=== PATIENT | female | born 1965 | race African-American/Black ===

== ENCOUNTER 2020-12-07 14:45 | Emergency (ER) | payer OTHER ==
[~2020-12-07] VITALS: Ht 162.6 cm; Wt 114.0 kg
[2020-12-07] MEDS ORDERED: IV NORMAL SALINE 1000ML BAG 1,000 ML IV ONE ×2 (15:45→18:45)
[2020-12-07] MEDS ORDERED: ONDANSETRON PF 4 MG/2 ML VIAL. IVP ONE (15:45)
[2020-12-07] MEDS ORDERED: ACETAMINOPHEN 325 MG TABLET. PO ONE (16:00)
[2020-12-07] MEDS ORDERED: methylPREDNISolone SOD SUCC PF 125 MG/2 ML VIAL. IV ONE (16:00)
[2020-12-07] MEDS ORDERED: ALBUTEROL SULFATE 2.5 MG/3 ML NEBU. NEB ONE (16:00)
--- NOTE | 2020-12-07 16:01 | PHYS DOC ---
General Adult EDM: Chief Complaint: MULTIPLE COMPLAINTS HPI: HPI: Patient is a 55 year old female who presents with 1 week of cough, shortness of breath, headache and fever. She states she started with vomiting and diarrhea today. Her second Covid shot was on November 29. She states that she has chest pain when she is coughing. The chest pain is in the mid chest and over to the left side. Patient denies dizziness, syncope, numbness or tingling, focal weakness, blood in her vomit or stool, urinary symptoms, back pain. Patient does have a history of asthma she states she is been using her inhaler at home but is not really helping. Review of Systems: Review of Systems: Constitutional: +fever or chills. [] Eyes: Denies change in visual acuity. [] HENT: Denies nasal congestion or sore throat. [] Respiratory: + cough or +shortness of breath. [] Cardiovascular: + chest pain or denies edema. [] GI: Denies abdominal pain, +nausea, +vomiting, denies bloody stools or +diarrhea. [] : Denies dysuria. [] Musculoskeletal: Denies back pain or joint pain. [] Integument: Denies rash. [] Neurologic: +headache, focal weakness or sensory changes. [] Endocrine: Denies polyuria or polydipsia. [] Lymphatic: Denies swollen glands. [] Psychiatric: Denies depression or anxiety. [] Heart Score: C/O Chest Pain: Yes HEART Score for Chest Pain: HEART Score for Chest Pain Response (Comments) Value History Slighlty/Non-Suspicious 0 ECG Normal 0 Age >45 - < 65 1 Risk Factors 1 or 2 Risk Factors 1 Troponin < Normal Limit 0 Total 2 Risk Factors: Risk Factors: DM, Current or recent (<one month) smoker, HTN, HLP, family history of CAD, obesity. Risk Scores: Score 0 - 3: 2.5% MACE over next 6 weeks - Discharge Home Score 4 - 6: 20.3% MACE over next 6 weeks - Admit for Clinical Observation Score 7 - 10: 72.7% MACE over next 6 weeks - Early Invasive Strategies Current Medications: Current Medications Medications (Trade) Dose Ordered Sig/Link Start Time Stop Time Status Last Admin Dose Admin Ondansetron HCl (Zofran) 4 mg 1X ONCE 12/07/20 15:45 12/07/20 15:46 UNV Sodium Chloride 1,000 ml @ 1,000 mls/hr 1X ONCE 12/07/20 15:45 12/07/20 16:44 UNV Physical Exam: PE: Constitutional: Well developed, well nourished, no acute distress, non-toxic appearance. [] HENT: Normocephalic, atraumatic, bilateral external ears normal, oropharynx moist, no oral exudates, nose normal. [] Eyes: PERRLA, EOMI, conjunctiva normal, no discharge. [] Neck: Normal range of motion, no tenderness, supple, no stridor. [] Cardiovascular:Heart rate tachycardia regular rhythm, no murmur [] Lungs & Thorax: Bilateral breath sounds clear to auscultation [] Abdomen: Bowel sounds normal, soft, no tenderness, no masses, no pulsatile masses. [] Skin: Warm, dry, no erythema, no rash. [] Back: No tenderness, no CVA tenderness. [] Extremities: No tenderness, no cyanosis, no clubbing, ROM intact, no edema. [] Neurologic: Alert and oriented X 3, normal motor function, normal sensory function, no focal deficits noted. [] Psychologic: Affect normal, judgement normal, mood normal. [] EKG: EK and read by Dr. Carlson as sinus tachycardia no STEMI [] Radiology/Procedures: Radiology/Procedures: [] Impression: [facility] [address] [facility] [place] [address] IMAGING REPORT Signed PATIENT: IFEANYI ROPER ACCOUNT: [id number] : 1965 LOCATION: ER AGE: 55 SEX: F EXAM STATUS: REG ER ORD. PHYSICIAN: YUMIKO BATES APRN REASON: chest pain, cough PROCEDURE: PORTABLE CHEST 1V XR CHEST 1V Clinical Indication: Reason: chest pain, cough / Spl. Instructions: / History: Comparison: None. Findings: The cardiomediastinal silhouette is normal. Lungs are clear. There is no pneumothorax. No pleural effusion is appreciated. No acute bone abnormality. IMPRESSION: No acute cardiopulmonary process. Electronically signed by: Az Chacon MD (12/07/2020 6:10 PM) [facility] DICTATED and SIGNED BY: AZ CHACON MD DATE: 12/07/20 [id number] [facility] [address] [place] [address] IMAGING REPORT Signed PATIENT: IFEANYI ROPER ACCOUNT: [id number] : 1965 LOCATION: ER AGE: 55 SEX: F EXAM STATUS: REG ER ORD. PHYSICIAN: YUMIKO BATES APRN REASON: diarrhea, vomiting, omni 300, 75 ml iv PROCEDURE: CT ABD PELV W/ IV CONTRST ONLY Exam: CT of abdomen and pelvis with contrast INDICATION: Diarrhea, vomiting TECHNIQUE: Sequential axial images through the abdomen and pelvis obtained following the administration of 75 mL of Isovue-370 IV contrast. Sagittal and coronal reformatted images were reconstructed from the axial data and reviewed. Exposure: One or more of the following in the visualized dose reduction techniques were utilized for this examination: 1. Automated exposure control 2. Adjustment of the MA and/or KV according to patient size 3. Use of iterative of reconstructive technique Comparisons: None FINDINGS: Heart size is normal. No pericardial effusion visualized lung bases are clear. No pleural effusion. Liver, spleen, pancreas and adrenals are unremarkable. Gallbladder is surgically absent. No perinephric inflammation. Mild left-sided hydronephrosis. There is a 3 mm calculus at the proximal left ureter. Nonobstructing left renal calculus is also noted. Bladder is partially distended and not well evaluated. Uterus is absent. No abnormal adnexal mass. Large and small bowel are unremarkable. Appendix is not identified. No free abdominal air or fluid. No obstruction. Abdominal aorta has a normal course and caliber. Abdominal vasculature is patent. No enlarged intra-abdominal lymph nodes are identified. No suspicious osseous lesions or acute fractures. IMPRESSION: 1. A 3 mm calculus the proximal left ureter with mild left-sided hydronephrosis. 2. Nonobstructing left renal calculus also noted. Electronically signed by: Ben Rosales MD (12/07/2020 8:23 PM) [facility] DICTATED and SIGNED BY: BEN ROSALES MD DATE: 12/07/20 [id number] 0 Course & Med Decision Making: Course & Med Decision Making Pertinent Labs and Imaging studies reviewed. (See chart for details) See HPI. Alert and oriented x4. Ambulatory with a steady gait. Speaks in full clear sentences. Lungs are clear to all station all lobes. Abdomen is soft and nontender. She rates her overall discomfort at a 8 out of 10. She states her stomach is cramping. Skin pink warm and dry. EKG shows sinus tachycardia no STEMI. 2100: Influenza negative. CT abdomen pelvis shows a left proximal ureter kidney stone and a nonobstructive left renal stone. Urinalysis does not show infection but does show some dehydration and contamination. Blood work is unremarkable. Patient will be sent home and follow-up with urology. Patient has been given 2 L of normal saline for hydration. Patient has been eating ice chips and she has not vomited and is keeping them down. Patient states she is feeling much better. I have retaken her temperature is 98.5. We will give the patient Rocephin in the ED. She is here from out of town and will be going back to her house December 28. I will still refer her to urology. I will Also send her home on an antibiotic. [] Sarah Disclaimer: Sarah Disclaimer: This electronic medical record was generated, in whole or in part, using a voice recognition dictation system. Departure Departure Impression: Primary Impression: Kidney stone on left side Additional Impressions: Fever Qualified Codes: R50.9 - Fever, unspecified Nausea & vomiting Qualified Codes: R11.2 - Nausea with vomiting, unspecified Disposition: 01 HOME / SELF CARE / HOMELESS Condition: STABLE Patient Instructions: Diet for Kidney Stones, Fever, Adult, Kidney Stones, Nausea and Vomiting Additional Instructions: Follow-up with the urologist of your choice. You can always go to urology at [phone]. Take medications as prescribed and with food. Take Tylenol or ibuprofen for fever or pain. If anything worsens return to the emergency room. Scripts Cephalexin (CEPHALEXIN) 500 Mg Capsule 1 CAP PO TID, #30 CAP Prov: YUMIKO BATES [employer] BU[employer]ING [employer]EL FORMER 12/07/20 Ibuprofen (IBUPROFEN) 600 Mg Tablet 600 MG PO PRN Q6HRS PRN for INFLAMMATION, #25 TAB Prov: YUMIKO BATES APRN 12/07/20 Hydrocodone Bit/Acetaminophen (HYDROCODONE-APAP 5-325 ) 1 Tab Tablet 1 TAB PO PRN Q6HRS PRN for PAIN, #10 TAB 0 Refills Prov: YUMIKO BATES APRN 12/07/20 Ondansetron (ONDANSETRON ODT) 4 Mg Tab.rapdis 1 TAB PO PRN Q6-8HRS, #20 TAB Prov: YUMIKO BATES APRN 12/07/20 Tamsulosin Hcl (FLOMAX) 0.4 Mg Cap.er.24h 1 CAP PO DAILY, #30 CAP Prov: YUMIKO BATES APRN 12/07/20 YUMIKO BATES APRN December 07, 2020 16:01
[2020-12-07 17:56] LABS: BASO % 0 % (0-3); EOS % 0 % (0-3); HEMATOCRIT 41.2 % (36.0-47.0); HEMOGLOBIN 14.4 g/dL (12.0-15.5); LYMPH # 0.5 x10^3/uL (1.0-4.8); LYMPH % 5 % (24-48); MEAN CORPUSCULAR HEMOGLOBIN 30 pg (25-35); MEAN CORPUSCULAR HGB CONC 35 g/dL (31-37); MEAN CORPUSCULAR VOLUME 85 fL (79-100); MONO # 0.4 x10^3/uL (0.0-1.1); MONO % 4 % (0-9); NEUT % 91 % (31-73); PLATELET COUNT 281 x10^3/uL (140-400); RED BLOOD COUNT 4.83 x10^6/uL (3.50-5.40); RED CELL DISTRIBUTION WIDTH 12.5 % (11.5-14.5)
[2020-12-07 17:57] LABS: BILIRUBIN,URINE SMALL (NEG); CLARITY,URINE CLEAR; COLOR,URINE AMBER; NITRITE,URINE NEGATIVE (NEG); PROTEIN,URINE NEGATIVE (NEG-TRACE)
[2020-12-07 18:11] LABS: CALCIUM 8.3 mg/dL (8.5-10.1); GFR 69.9; POTASSIUM 3.3 mmol/L (3.5-5.1)
--- NOTE | 2020-12-07 18:13 | RAD ---
XR CHEST 1V Clinical Indication: Reason: chest pain, cough / Spl. Instructions: / History: Comparison: None. Findings: The cardiomediastinal silhouette is normal. Lungs are clear. There is no pneumothorax. No pleural eff usion is appreciated. No acute bone abnormality. IMPRESSION: No acute cardiopulmonary process. Electronically signed by: Az Chacon MD (12/07/2020 6:10 PM) [facility]
[2020-12-07 18:14] LABS: BACTERIA,URINE MODERATE /HPF (0-FEW); RBC,URINE 20-40 /HPF (0-2)
[2020-12-07 18:15] LABS: WBC,URINE OCC /HPF (0-4)
[2020-12-07 18:16] LABS: INFLUENZA A PATIENT NEGATIVE (NEGATIVE); INFLUENZA B PATIENT NEGATIVE (NEGATIVE)
[2020-12-07 18:17] LABS: ALBUMIN 4.1 g/dL (3.4-5.0); ALBUMIN/GLOBULIN RATIO 1.1 (1.0-1.7); TOTAL BILIRUBIN 1.3 mg/dL (0.2-1.0); TOTAL PROTEIN 7.9 g/dL (6.4-8.2)
[2020-12-07] MEDS ORDERED: IOHEXOL 300 MG/ML 100ML VIAL. IV ONE (18:45)
[2020-12-07] MEDS ORDERED: CONTRAST GIVEN. MC PRN (19:00)
[2020-12-07 19:15] LABS: % LYMPHS 9 % (24-48); % MONOS 3 % (0-10); % SEGS 88 % (35-66)
[2020-12-07 19:16] LABS: PLT ESTIMATE ADEQUATE (ADEQUATE)
--- NOTE | 2020-12-07 19:31 | EKG ---
[facility] [address] [place] [address] Test Date: 2020-12-07 Test Time: 14:52:38 Pat Name: IFEANYI ROPER Department: Room: Gender: F Tester/Lift Trucker: : 1965 Requested By: YUMIKO BATES Order Number: [id number] Reading MD: Measurements Intervals [place] Rate: 108 P: 20 FL: 144 QRS: 66 QRSD: 82 T: 62 QT: 334 QTc: 451 Interpretive Statements SINUS TACHYCARDIA QRS(T) CONTOUR ABNORMALITY CONSIDER ANTEROLATERAL MYOCARDIAL DAMAGE POSSIBLY ABNORMAL ECG RI6.01 No previous ECG available for comparison
--- NOTE | 2020-12-07 20:25 | RAD ---
Exam: CT of abdomen and pelvis with contrast INDICATION: Diarrhea, vomiting TECHNIQUE: Sequential axial images through the abdomen and pelvis obtained following the administrati on of 75 mL of Isovue-370 IV contrast. Sagittal and coronal reformatted images were reconstructed fro m the axial data and reviewed. Exposure: One or more of the following in the visualized dose reduction techniques were utilized for this examination: 1. Automated exposure control 2. Adjustment of the MA and/or KV according to patient size 3. Use of iterative of reconstructive technique Comparisons: None FINDINGS: Heart size is normal. No pericardial effusion visualized lung bases are clear. No pleural effusion. Liver, spleen, pancreas and adrenals are unremarkable. Gallbladder is surgically absent. No perinephric inflammation. Mild left-sided hydronephrosis. There is a 3 mm calculus at the proximal left ureter. Nonobstructing left renal calculus is also noted. Bladder is partially distended and not well evaluated. Uterus is absent. No abnormal adnexal mass. Large and small bowel are unremarkable. Appendix is not identified. No free abdominal air or fluid. N o obstruction. Abdominal aorta has a normal course and caliber. Abdominal vasculature is patent. No enlarged intra-abdominal lymph nodes are identified. No suspicious osseous lesions or acute fractures. IMPRESSION: 1. A 3 mm calculus the proximal left ureter with mild left-sided hydronephrosis. 2. Nonobstructing left renal calculus also noted. Electronically signed by: Ben Jacobsen MD (12/07/2020 8:23 PM) [facility]
[2020-12-07] MEDS ORDERED: CEPH500C PO (21:08)
[2020-12-07] MEDS ORDERED: TAMS0.4C97 PO (21:08)
[2020-12-07] MEDS ORDERED: ONDA4TAB12 PO (21:08)
[2020-12-07] MEDS ORDERED: HYDR-2761 PO (21:08)
[2020-12-07] MEDS ORDERED: IBUP-1007 PO (21:08)
[2020-12-07 21:30] VITALS: BP 124/64
[2020-12-07] MEDS ORDERED: KETOROLAC 30 MG/ML VIAL. IVP ONE (21:30)
[2020-12-07] MEDS ORDERED: cefTRIAXone IV Push 1 GM VIAL. IVP ONE (21:30)
--- NOTE | 2020-12-09 09:12 | NUR ---
IP: Informed pt of negative covid test. Pt verbalized understanding.
== END 2020-12-07 21:53 | disposition home or self-care (01) ==
LOC: ER 14:45
DX: N20.0 Calculus of kidney (principal); Z20.822 Contact with and (suspected) exposure to COVID-19; R11.2 Nausea with vomiting, unspecified; R07.89 Other chest pain
CPT/HCPCS: 36415; 71045; 74177; 80053; 81001; 83605; 83690; 83880; 84484; 85007; 85025; 87086; 87804; 93005; 94640; 96361; 96374; 96375; 99285; J0696; J1885; J2405; J2930; J7030; J7613; Q9967; U0003; U0005

== ENCOUNTER 2021-07-09 02:33 | Emergency (ER) | payer OTHER ==
[~2021-07-09] VITALS: Ht 162.6 cm; Wt 97.7 kg
[~2021-07-09 02:33] MED LIST: CEPH500C PO; HYDR-2761 PO; IBUP-1007 PO; ONDA4TAB12 PO; TAMS0.4C97 PO
[2021-07-09 02:50] VITALS: BP 136/93
[2021-07-09] MEDS ORDERED: PRED50TA PO (03:30)
--- NOTE | 2021-07-09 03:30 | PHYS DOC ---
Past Medical History Past Medical History: Asthma, Hypertension, Hypothyroid Past Surgical History: Cholecystectomy, Hysterectomy, Tubal ligation Additional Past Surgical Histo: R CARPAL TUNNEL/ULNAR NERVE, RIGHT FOOT Smoking Status: Never Smoker Alcohol Use: None Adult General Chief Complaint Chief Complaint: SORE THROAT HPI HPI The patient is a 55-year-old female with a history of hypertension and asthma (mild, has never been hospitalized for her asthma) who presents for evaluation of about 3 days of upper respiratory congestion, rhinorrhea, mild dry cough, b ilateral ear pain, and mild sore throat. She is fully vaccinated against COVID- 19. No fevers, vomiting, shortness of breath or chest pain of any kind. Patient is alert and pleasantly appropriately interactive and in no acute distress with completely appropriate vital signs including oxygenation upon initial evaluation here in the emergency department. Lungs are clear to auscult ation. Review of Systems Review of Systems A 12 point review of systems was completed and was negative except where noted in HPI above. Allergies Allergies Allergies Coded Allergies Type Severity Reaction Last Updated Verified No Known Drug Allergies 12/07/20 No Physical Exam Physical Exam Older female appearing nontoxic and in no acute distress. Head is normocephalic and atraumatic. Neck is supple and nontender. Oropharynx is moist. Mild nasal mucus bilaterally. Tympanic membranes clear bilaterally. Very mild posterior oropharyngeal erythema without tonsillar exudates or swelling or uvular deviation. Patient is speaking comfortably in full sentences in a normal tone of voice and tolerating secretions normally. Lungs are clear to auscultation at all stations. There is a normal S1 and S2 without rubs or gallops and capillary refill is appropriate, less than 2 seconds globally. Abdomen is soft, nontender nondistended. Skin is warm and dry without cyanosis, clubbing or edema. Psychiatrically, the patient demonstrates appropriate mood and affect and is alert. Evaluation of the extremities reveals BUEs and BLEs neurovascularly intact distally with strength out of 5, sensation intact light touch in all nerve distributions, radial, DP and PT pulses 2+ and equal bilaterally, capillary refill less than 2 seconds, hands and feet warm and well-perfused. No dependent peripheral edema distally. No calf tenderness or swelling bilaterally. Homans test is negative bilaterally. Current Patient Data Vital Signs Vital Signs Date Time Temp Pulse Resp B/P (MAP) Pulse Ox O2 Delivery O2 Flow Rate FiO2 07/09/21 02:50 98.6 108 14 136/93 (107) 97 Room Air 98.6 EKG EKG [] Radiology/Procedures Radiology/Procedures Well-appearing 55-year-old female here with 3 days of upper respiratory symptoms. Will swab for Covid and flu given community prevalence, though lower suspicion given mild symptoms. Not clinically an asthma exacerbation but concerned about that so we will prescribe a steroid burst which the patient may fill if she develops shortness of breath or wheezing. Woug-wid-dnlhuqe medication advised for upper respiratory symptoms. Patient understands that if she feels worse instead of better or develops other new symptoms of concern that she will need to return to the emergency department immediately for reevaluation. All questions were answered Course & Med Decision Making Course & Med Decision Making Pertinent Labs and Imaging studies reviewed. (See chart for details) [] Dragon Disclaimer Dragon Disclaimer This electronic medical record was generated, in whole or in part, using a voice recognition dictation system. Departure Departure Impression: Primary Impression: Upper respiratory infection, viral Disposition: HOME / SELF CARE / HOMELESS Condition: STABLE Patient Instructions: Upper Respiratory Infection, Adult Additional Instructions: Follow-up very closely with your primary care doctor in the office in the next 2 to 4 days for reevaluation of your symptoms and to discussion of next best steps in care. Drink plenty of fluids and get plenty of rest. You may take xovt-ddj-[id number] medications including generic DayQuil and NyQuil for your upper respiratory symptoms. If you begin to develop shortness of breath or wheezing you may fill and begin taking the prednisone steroid burst. If you do choose to begin taking the steroid, take it until the medicine is gone. You may use your home inhaler if you begin to develop problems with wheezing as well. Return to the emergency department right away for worsening symptoms of any kind or with any other new symptoms of concern. Scripts Prednisone (PREDNISONE) 50 Mg Tablet 1 TAB PO DAILY, #5 TAB Prov: AQUILINO CLARK MD 07/09/21 AQUILINO CLARK MD Jul 09, 2021 03:30
[2021-07-09 03:51] LABS: INFLUENZA A PATIENT NEGATIVE (NEGATIVE); INFLUENZA B PATIENT NEGATIVE (NEGATIVE)
== END 2021-07-09 03:40 | disposition home or self-care (01) ==
LOC: ER 02:33
DX: U07.1 COVID-19 (principal); J06.9 Acute upper respiratory infection, unspecified; B97.89 Other viral agents as the cause of diseases classified elsewhere; J45.909 Unspecified asthma, uncomplicated; I10 Essential (primary) hypertension; E03.9 Hypothyroidism, unspecified
CPT/HCPCS: 87426; 87804; 99283